=== PATIENT | female | born 1930 | race African-American/Black ===

== ENCOUNTER → 2017-04-23 | Outpatient (CLI) | payer OTHER, BC ==
[~2017-04-23] MED LIST: ACIPHEX20 MG; ALLEGRA; ALLEGRA PO; AMLODIPINE BESYL5 MG PO; AVANDIA; CLEOCIN HCL300 M1 PO; DILANTIN; DILANTIN PO; FLONASE16 GM; GLYNASE; GLYNASE PO; HCTZ; HCTZ PO; LIPITOR; LIPITOR PO; METOPROLOL TAR25 MG PO; PHENYTOIN SODI100 M4; PROTONIX; ROLAIDS; SULAR; TOPROL XL; ZETIA PO
--- NOTE | ~2017-04-23 | BD1 ---
[facility] A Service of [facility] RADIOLOGY TEXT RESULTS PATIENT: SYLVIE ALEJANDRA LOCATION: [facility] : 32 UNIT #: [id number] AGE: [address]: Kenny Orlando MD SEX: F ORDER DR: [id number] [facility] [address] [place], [place] [address] [id number] O MR#: [id number] Acc #: [id number] NAME: SYLVIE ALEJANDRA : 1930 SEX: F STUDY DATE/TIME: 04/23/2017 13:09 UNIT: [facility] ROOM: STUDY DESCRIPTION: BD Dexa Bone Dens 1+ Site Attending Physician: Kenny Orlando Jr., M.D. Referring Physician: Kenny Orlando Jr., M.D. Ordering Physician: Kenny Orlando Jr., M.D. Primary Care Physician: Kenny Orlando Jr., M.D. MEDICAL IMAGING REPORT This report is preliminary unless electronic signature is present EXAM DXA bone density 04/23/2017 HISTORY Postmenopausal. Metal in lower back. TECHNIQUE Bone density scanning performed in the left femur and left forearm in this 205-pound -[place] 86-year-old female. COMPARISON STUDIES None. FINDINGS Left Femur: Total bone mineral density 0.610 g/cm2 for T-score 2.7 standard deviations below the mean for reference population of normal young individuals and Z-score 1.0 standard deviations below the mean for age-matched population. Left femoral neck bone mineral density is 0.539 g/cm2 for T-score 2.8 standard deviations below the mean for reference population of normal young individuals and Z-score 0.9 standard deviations below the mean for age-matched population. In the radius one-third station of the left forearm, bone mineral density is 0.428 g/cm2 for T-score 4.4 standard deviations below the mean for reference population of normal young individuals and Z-score 0.7 standard deviations below the mean for age-matched population. IMPRESSION 1. 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 Patient felt to be at significant increased risk for fracture. Treatment options may be considered. Continued surveillance is recommended. Osteoporosis also noted in the proximal left femur, inclusive of STS. [facility] A Service of [facility] RADIOLOGY TEXT RESULTS PATIENT: SYLVIE ALEJANDRA LOCATION: [facility] : 32 UNIT #: [id number] AGE: [address]: Kenny Orlando MD SEX: F ORDER DR: femoral neck. Dictated by... Kenny Thornton M.D. THIS IS AN ELECTRONICALLY VERIFIED REPORT Kenny Thornton M.D. at 04/26/2017 8:26 AM GABBIE/shital TD: 04/23/2017 21:49 JOB #: [id number] MEDICAL IMAGING REPORT Page 1 of 1 COPY
--- NOTE | ~2017-04-23 | MY11 ---
[facility] A Service of [facility] RADIOLOGY TEXT RESULTS PATIENT: SYLVIE ALEJANDRA LOCATION: [facility] : 32 UNIT #: [id number] AGE: [address]: Kenny Orlando MD SEX: F ORDER DR: [id number] [facility] [address] [place], [place] [address] [id number] O MR#: [id number] Acc #: [id number] NAME: SYLVIE ALEJANDRA : 1930 SEX: F STUDY DATE/TIME: 04/23/2017 13:14 UNIT: [facility] ROOM: STUDY DESCRIPTION: MY Mammogram Screening Dig Markos Attending Physician: Kenny Orlando Jr., M.D. Referring Physician: Kenny Orlando Jr., M.D. Ordering Physician: Kenny Orlando Jr., M.D. Primary Care Physician: Kenny Orlando Jr., M.D. MEDICAL IMAGING REPORT This report is preliminary unless electronic signature is present EXAM Digital screening mammogram, 04/23/2017 HISTORY 86-year-old woman no risk elevation. Annual screening. COMPARISON 11/05/2008 FINDINGS Digital imaging of each breast was completed utilizing screening protocol. Review includes FDA-approved CAD device. Breast parenchyma is predominantly fatty replaced bilaterally. There is a scattered small nodular parenchymal pattern in each breast. I see no suspicious breast mass and no interval occurring microcalcifications or suspicious architectural deformity. IMPRESSION Benign mammogram. Annual screening recommended. Patients over the age of 40 are entered into a reminder system with target due date for the next mammogram. A result letter will also be sent to the patient. BIRADS: 2 Benign Finding Dictated by... Yosef Hayward M.D. THIS IS AN ELECTRONICALLY VERIFIED REPORT Yosef Hayward M.D. at 04/23/2017 3:38 PM Belia [facility] A Service of [facility] RADIOLOGY TEXT RESULTS PATIENT: SYLVIE ALEJANDRA [id number] 34 UNIT #: [id number] AGE: [address]: Kenny Orlando MD SEX: F ORDER DR: TD: 04/23/2017 15:07 JOB #: [id number] MEDICAL IMAGING REPORT Page 1 of 1 COPY
== END | disposition home or self-care (01) ==
LOC: CWCC 12:28
DX: Z12.31 Encounter for screening mammogram for malignant neoplasm of breast (principal); Z78.0 Asymptomatic menopausal state; M81.0 Age-related osteoporosis without current pathological fracture
CPT/HCPCS: 77080; G0202